=== PATIENT | female | born 1950 | race Caucasian/White ===

== ENCOUNTER 2022-09-24 08:05 | Emergency (ER) | payer MEDICARE, SELFPAY ==
[2022-09-24 08:12] VITALS: BP 177/88; PULSE 75; RESP 18; TEMP 36.6; O2SAT 98; BMI 22.5
--- NOTE | 2022-09-24 08:22 | XR_ITS ---
The [address] [address] Patient Name: ARLEEN TEE MRN: [id number] date: 1950 Sex: F Assigned Patient Location: ER Current Patient Location: ED.MAIN Accession/Order Number: [id number] Exam Date: 09/24/2022 08:32 Report Date: 09/24/2022 09:04 At the request of: YUAN MAHER Procedure: XR shoulder LT min 2V EXAM: XR shoulder LT min 2V Indication: Fall, left shoulder injury COMPARISON: None. FINDINGS: No fracture or dislocation. No suspicious osseous lesions. No radiopaque foreign body. No consolidation within visualized portions of the left lung. XR/XR shoulder LT min 2V IMPRESSION: No acute fracture or dislocation. Electronically authenticated by: JENNIFER BARNES Date: 09/24/2022 09:04
[2022-09-24] MEDS: ACETAMINOPHEN 500 MG TABLET 1000 MG PO (08:40)
--- NOTE | 2022-09-24 09:05 | ED.UPPEXIN1 ---
HPI - Extremity Injury (Upper) General Chief Complaint: Extremity Injury, Upper Stated Complaint: FALL/POSS. DISLOCATION OF L SHOULDER Time Seen by Provider: 09/24/22 08:19 Mode of arrival: walk-in History of Present Illness HPI narrative: patient tripped and fell earlier this morning and injured her left shoulder. No head injury or LOC. No other injuries. No meds taken at home for this. She has pain along the distal left clavical and top of the left shoulder with some early bruising. Related Data Allergies Allergy/AdvReac Type Severity Reaction Status Date / Time Penicillins AdvReac Unknown Verified 09/24/22 08:12 Sulfa (Sulfonamide AdvReac Unknown Verified 09/24/22 08:12 Antibiotics) Exam Narrative Exam Narrative: Nurses note and vital signs reviewed and patient is not hypoxic. afebrile General: The patient appears well and in no apparent distress. Patient is resting comfortably on cart. GCS = 15. Skin: Warm, dry, no pallor noted. Head: Normocephalic, atraumatic Neck: Supple, trachea mid-line. Full ROM and no cervical spinal tenderness. Eyes: PERRLA, EOMI ENT: TMs clear, no hemotympanum detected, no blood in posterior oropharynx Cardiovascular: Regular Rate and Rhythm Respiratory: Patient is in no distress, no accessory muscle use, lungs are clear to auscultation, no wheezing, rales or rhonchi Chest Wall: no tenderness, no flail chest, contusion, abrasion, or signs of trauma. Back: No thoracic or lumbar tenderness to palpation. Negative straight leg raise bilaterally. Musculoskeletal: tenderness along the distal left clavicla and the anterior and [id number] left shoulder. Normal left UE ROM but with pain. no additional sign of long bone fracture. Moves all four extremities in all modalities with 5/5 strength. GI: Normal bowel sounds, no tenderness to palpation, no masses appreciated. No rebound, guarding, or rigidity noted. 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 Psychiatric: Cooperative Constitutional Vital Signs, click to edit/add: Last Vital Signs Temp 97.8 F 09/24/22 08:12 Pulse 75 09/24/22 08:12 Resp 18 09/24/22 08:12 BP 177/88 H 09/24/22 08:12 Pulse Ox 98 09/24/22 08:12 Course Vital Signs Vital signs: Vital Signs Temperature 97.8 F 09/24/22 08:12 Pulse Rate 75 09/24/22 08:12 Respiratory Rate 18 09/24/22 08:12 Blood Pressure 177/88 H 09/24/22 08:12 Pulse Oximetry 98 09/24/22 08:12 Temperature 97.8 F 09/24/22 08:12 Pulse Rate 75 09/24/22 08:12 Respiratory Rate 18 09/24/22 08:12 Blood Pressure 177/88 H 09/24/22 08:12 Pulse Oximetry 98 09/24/22 08:12 MDM - Extremity Injury (Upper) Imaging Data xr shoulder: Attestation: I have reviewed the pertinent imaging results. Radiologist's impression: Patient Name: ARLEEN TEE MRN: [id number] date: 1950 Sex: F Assigned Patient Location: ER Current Patient Location: ED.MAIN Accession/Order Number: [id number] Exam Date: 09/24/2022 08:32 Report Date: 09/24/2022 09:04 At the request of: YUAN MAHER Procedure: XR shoulder LT min 2V EXAM: XR shoulder LT min 2V Indication: Fall, left shoulder injury COMPARISON: None. FINDINGS: No fracture or dislocation. No suspicious osseous lesions. No radiopaque foreign body. No consolidation within visualized portions of the left lung. IMPRESSION: No acute fracture or dislocation. Electronically authenticated by: JENNIFER BARNES Date: 09/24/2022 09:04 Discharge Plan Discharge Chief Complaint: Extremity Injury, Upper Clinical Impression: Contusion of left shoulder Patient Disposition: Home, Self-Care Time of Disposition Decision: 09:14 Instructions: Contusion in Adults (ED), Shoulder Pain (ED) Stand Alone Forms: Portal Instructions Referrals: [facility] [Other] - 1 week
== END 2022-09-24 09:29 | disposition home or self-care (01) ==
PROVIDERS: Emergency Provider Emergency Medicine
DX: S40.012A Contusion of left shoulder, initial encounter (principal); W19.XXXA Unspecified fall, initial encounter
CPT/HCPCS: 73030; 99283